=== PATIENT | female | born 1965 | race Caucasian/White ===

== ENCOUNTER 2016-08-26 10:42 | Outpatient (CLI) ==
--- NOTE | 2016-08-26 11:18 | DI ---
EXAM: Radiographs, thoracic spine HISTORY: Back pain. COMPARISON: None available. TECHNIQUE: Three views. FINDINGS: Moderate right convex curvature centered near T9 noted. Alignment is normal. Paraverteb ral body heights are maintained. Mild loss of disc height with endplate osteophyte formation seen, greater, about the area of convex curvature. No fracture identified. Soft tissues are unremarkable . IMPRESSION: 1. Moderate right convex lower thoracic curvature. 2. Mild degenerative disc disease.
--- NOTE | 2016-08-26 11:23 | DI ---
EXAM: Three views of the cervical spine HISTORY: Neck pain. COMPARISON: None FINDINGS: There is no compression fracture or subluxation of the cervical spine. The cervical spine demonstrate significant straightening. There is disc space narrowing at C4-C5, C5-C6 and C6-C7. T he facets are normal. Posterior processes are unremarkable. The odontoid process is unremarkable. IMPRESSION: Degenerative disease of the cervical spine with no compression fracture or subluxation.
--- NOTE | 2016-08-26 11:28 | DI ---
EXAM: Radiographs, lumbar spine HISTORY: Low back pain. COMPARISON: 03/11/2011. TECHNIQUE: Five views. FINDINGS: Right convex lower thoracic and left convex upper lumbar curvature noted. Alignment is n ormal. Vertebral body heights are maintained. There is mild loss of disc height at L1-2, L3-4 and L4-5. Mild endplate osteophyte formation noted. Facet arthropathy present throughout the lumbar sp ine, moderate in the lower lumbar spine. No fracture or subluxation identified. Sacral arcuate alla es are intact. Atherosclerotic calcifications are present. IMPRESSION: 1. S-shaped thoracolumbar scoliosis. 2. Multilevel degenerative disc disease and facet arthropathy.
[2016-08-26 15:33] LABS: BASOPHILS % (AUTO) 0.3 % (0.0-3.0); EOSINOPHILS # (AUTO) 0.1 K/ul (0.0-0.7); HEMATOCRIT 43.6 % (37.0-47.0); HEMOGLOBIN 14.2 g/dl (12.0-16.0); IMMATURE GRANULOCYTE % (AUTO) 0.3 % (0.0-5.0); LYMPHOCYTES # (AUTO) 2.1 K/uL (0.60-3.4); LYMPHOCYTES % (AUTO) 33.9 (10.0-50.0); MEAN CORPUSCULAR HEMOGLOBIN 33.3 pg (27.0-31.0); MEAN CORPUSCULAR HGB CONC 32.6 (31.8-35.4); MEAN CORPUSCULAR VOLUME 102.1 fl (81.0-99.0); MONOCYTES # (AUTO) 0.6 K/uL (0.4-2.0); NEUTROPHILS # (AUTO) 3.4 K/ul (2.0-6.9); NEUTROPHILS % (AUTO) 55.5; PLATELET COUNT 267 10^3/uL (140-440); RED BLOOD COUNT 4.27 10^6/ul (4.20-5.40); WHITE BLOOD COUNT 6.11 K/ul (4.6-10.2)
[2016-08-26 16:18] LABS: ALBUMIN 4.2 g/dL (3.4-5.0); ALBUMIN/GLOBULIN RATIO 1.2; ANION GAP 11.7; BILIRUBIN,TOTAL 0.58 mg/dL (0.00-1.20); BUN/CREATININE RATIO 22.05; CALCIUM 9.4 mg/dL (8.2-10.2); CREATININE 0.68 mg/dL (0.60-1.30); POTASSIUM 4.7 mmol/L (3.5-5.10); TOTAL PROTEIN 7.7 g/dL (6.4-8.2)
[2016-08-26 16:21] LABS: ERYTHROCYTE SEDIMENTATION RATE 20 mm/hr (0-20); ESR INTERNAL QC INTERNAL QC VALID
[2016-08-27 06:10] LABS: RHEUMATOID ARTHRITIS FACTOR < 10.0 IU/mL (0.0-13.9)
[2016-08-29 08:57] LABS: VITAMIN D25 32.1 ng/mL (30.0-100.0)
[2016-08-30 07:22] LABS: ANTI-NUCLEAR ANTIBODY SCREEN Positive (Negative)
== END 2016-08-26 10:43 | disposition home or self-care (01) ==
LOC: LAB 10:42
PROVIDERS: ATTEND Nurse Practitioner Family
DX: M54.5 Low back pain (principal); M54.2 Cervicalgia; M54.6 Pain in thoracic spine; M79.641 Pain in right hand; M79.642 Pain in left hand
CPT/HCPCS: 36415; 80053; 80061; 82306; 84439; 84443; 85025; 85651; 86038; 86430

== ENCOUNTER 2016-10-31 12:04 | Outpatient (CLI) ==
--- NOTE | 2016-10-31 13:11 | DI ---
EXAM: Three views of the left wrist. History: Left wrist pain. Findings: No acute fracture or dislocation. Well corticated ossific density adjacent to the ulnar styloid is either accessory ossicle or related to old trauma. Mild polyarticular joint space narrow ing. Impression: No acute osseous abnormality. Mild arthritis.
--- NOTE | 2016-10-31 13:14 | DI ---
EXAM: LEFT HAND THREE VIEWS HISTORY: Wrist pain FINDINGS / IMPRESSION: Bone density appears decreased. 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 Two smal l well-circumscribed bony densities are seen near the ulnar styloid base suggesting accessory ossicl es. No acute or chronic fracture is identified.
== END 2016-10-31 12:05 | disposition home or self-care (01) ==
LOC: RAD 12:04
PROVIDERS: ATTEND Nurse Practitioner Family
DX: M25.532 Pain in left wrist (principal); M79.642 Pain in left hand; M79.89 Other specified soft tissue disorders

== ENCOUNTER 2016-11-16 14:00 | Outpatient (CLI) ==
--- NOTE | 2016-11-18 07:23 | MAMMO ---
EXAM: Digital screening mammogram HISTORY: Screening mammogram COMPARISON: None FINDINGS: Bilateral CC and MLO views of the breasts were performed digitally and demonstrate scatte red fibroglandular breast density (25 - 50%). Benign bilateral calcifications are present. There is a 0.4 cm in diameter nodule in the central upper left breast approximately 4.0 cm from the nipple. There is no suspicious nodule of the right breast. IMPRESSION: Left breast nodule RECOMMENDATION: Left breast diagnostic mammogram and potential ultrasound BIRADS category 0: Needs further evaluation
== END 2016-11-16 14:01 | disposition home or self-care (01) ==
LOC: RAD 14:00
PROVIDERS: ATTEND Nurse Practitioner Family
DX: Z12.31 Encounter for screening mammogram for malignant neoplasm of breast (principal)

== ENCOUNTER 2016-11-23 10:04 | Outpatient (CLI) ==
--- NOTE | 2016-11-23 10:38 | MAMMO ---
EXAM: Left digital diagnostic mammogram History: Left breast nodule. Comparison: Bilateral mammogram 11/16/2016 Findings: Left breast density is scattered. Additional spot compression views of the left breast r eveal normal superimposed breast parenchyma. There are no suspicious masses and no suspicious micro calcifications. Impression: No mammographic evidence of malignancy. Return to routine screening mammography annette prado. BIRADS 2
== END 2016-11-23 10:05 | disposition home or self-care (01) ==
LOC: RAD 10:04
PROVIDERS: ATTEND Nurse Practitioner Family
DX: N63 Unspecified lump in breast (principal)

== ENCOUNTER 2017-02-10 09:20 | Outpatient (CLI) ==
[2017-02-10 09:43] LABS: BASOPHILS % (AUTO) 0.6 % (0.0-3.0); EOSINOPHILS # (AUTO) 0.1 K/ul (0.0-0.7); EOSINOPHILS % (AUTO) 1.6 % (0.0-7.0); HEMATOCRIT 40.6 % (37.0-47.0); HEMOGLOBIN 13.6 g/dl (12.0-16.0); IMMATURE GRANULOCYTE % (AUTO) 0.2 % (0.0-5.0); LYMPHOCYTES # (AUTO) 2.4 K/uL (0.60-3.4); LYMPHOCYTES % (AUTO) 38.1 (10.0-50.0); MEAN CORPUSCULAR HEMOGLOBIN 32.9 pg (27.0-31.0); MEAN CORPUSCULAR HGB CONC 33.5 (31.8-35.4); MEAN CORPUSCULAR VOLUME 98.1 fl (81.0-99.0); MONOCYTES # (AUTO) 0.7 K/uL (0.4-2.0); MONOCYTES % (AUTO) 10.9 (0-10); NEUTROPHILS % (AUTO) 48.6; PLATELET COUNT 239 10^3/uL (140-440); RED BLOOD COUNT 4.14 10^6/ul (4.20-5.40); WHITE BLOOD COUNT 6.24 K/ul (4.6-10.2)
[2017-02-10 10:27] LABS: ALBUMIN/GLOBULIN RATIO 1.21; ANION GAP 13.3; BILIRUBIN,TOTAL 0.52 mg/dL (0.00-1.20); BUN/CREATININE RATIO 36.61; CALCIUM 9.2 mg/dL (8.2-10.2); CREATININE 0.71 mg/dL (0.60-1.30); POTASSIUM 4.3 mmol/L (3.5-5.10); TOTAL PROTEIN 7.3 g/dL (6.4-8.2)
== END 2017-02-10 09:21 | disposition home or self-care (01) ==
LOC: LAB 09:20
PROVIDERS: ATTEND Nurse Practitioner Family
DX: R76.8 Other specified abnormal immunological findings in serum (principal); E75.6 Lipid storage disorder, unspecified
CPT/HCPCS: 36415; 80053; 80061; 84443; 85025; 93005; 93010

== ENCOUNTER 2017-05-05 12:48 | Outpatient (CLI) ==
[2017-05-05 13:11] LABS: BASOPHILS % (AUTO) 0.6 % (0.0-3.0); EOSINOPHILS # (AUTO) 0.1 K/ul (0.0-0.7); EOSINOPHILS % (AUTO) 2.2 % (0.0-7.0); HEMATOCRIT 43.4 % (37.0-47.0); HEMOGLOBIN 14.6 g/dl (12.0-16.0); IMMATURE GRANULOCYTE % (AUTO) 0.3 % (0.0-5.0); LYMPHOCYTES # (AUTO) 2.2 K/uL (0.60-3.4); LYMPHOCYTES % (AUTO) 34.7 (10.0-50.0); MEAN CORPUSCULAR HGB CONC 33.6 (31.8-35.4); MEAN CORPUSCULAR VOLUME 98.2 fl (81.0-99.0); MONOCYTES # (AUTO) 0.6 K/uL (0.4-2.0); MONOCYTES % (AUTO) 9.1 (0-10); NEUTROPHILS # (AUTO) 3.4 K/ul (2.0-6.9); NEUTROPHILS % (AUTO) 53.1; PLATELET COUNT 269 10^3/uL (140-440); RED BLOOD COUNT 4.42 10^6/ul (4.20-5.40); WHITE BLOOD COUNT 6.45 K/ul (4.6-10.2)
[2017-05-05 13:25] LABS: BILIRUBIN,URINE Negative (NEGATIVE); KETONES,URINE Negative (NEGATIVE); LEUKOCYTE ESTERASE ,URINE Negative (NEGATIVE); NITRITE,URINE Negative (NEGATIVE); PROTEIN,URINE Trace (NEGATIVE); URINE, BLOOD Trace-intact (NEGATIVE)
[2017-05-05 13:30] LABS: ADD URINE MICROSCOPIC YES
[2017-05-05 13:51] LABS: BACTERIA,URINE TRACE (NOT PRESENT)
[2017-05-05 13:55] LABS: ALBUMIN 3.9 g/dL (3.4-5.0); ALBUMIN/GLOBULIN RATIO 1.05; CALCIUM 9.6 mg/dL (8.2-10.2); POTASSIUM 4.3 mmol/L (3.5-5.10); TOTAL PROTEIN 7.6 g/dL (6.4-8.2)
[2017-05-05 13:56] LABS: ANION GAP 14.3; BILIRUBIN,TOTAL 0.76 mg/dL (0.00-1.20); BUN/CREATININE RATIO 32.83; CHOL/HDL RATIO 3.8 (4.5-5.5); CREATININE 0.67 mg/dL (0.60-1.30)
== END 2017-05-05 12:49 | disposition home or self-care (01) ==
LOC: LAB 12:48
PROVIDERS: ATTEND Nurse Practitioner Family
DX: R30.0 Dysuria (principal); E66.9 Obesity, unspecified; R53.83 Other fatigue; M54.2 Cervicalgia
CPT/HCPCS: 36415; 80053; 80061; 81001; 82306; 84439; 84443; 85025

== ENCOUNTER 2017-05-08 12:12 | Outpatient (CLI) | END 2017-05-08 12:13 | disposition home or self-care (01) | LOC: CAR 12:12 | PROVIDERS: ATTEND Nurse Practitioner Family | DX: R53.83 Other fatigue (principal) | CPT/HCPCS: 95810 ==

== ENCOUNTER 2017-09-25 13:21 | Outpatient (CLI) | END 2017-09-25 13:22 | disposition home or self-care (01) | LOC: LAB 13:21 | PROVIDERS: ATTEND Nurse Practitioner Family | DX: I83.029 Varicose veins of left lower extremity with ulcer of unspecified site (principal); E66.9 Obesity, unspecified; E78.5 Hyperlipidemia, unspecified | CPT/HCPCS: 36415; 80053; 80061; 85025; 87070 ==

== ENCOUNTER 2017-09-27 09:33 | Outpatient (CLI) | END 2017-09-27 09:34 | disposition home or self-care (01) | LOC: WOUND 09:33 | PROVIDERS: ATTEND Psychiatry & Neurology Psychiatry | DX: I87.313 Chronic venous hypertension (idiopathic) with ulcer of bilateral lower extremity (principal); L95.8 Other vasculitis limited to the skin; F17.210 Nicotine dependence, cigarettes, uncomplicated | CPT/HCPCS: 99201; 99202 ==

== ENCOUNTER 2017-09-28 12:25 | Outpatient (CLI) | END 2017-09-28 12:26 | disposition home or self-care (01) | LOC: RAD 12:25 | PROVIDERS: ATTEND Nurse Practitioner Family | DX: I83.029 Varicose veins of left lower extremity with ulcer of unspecified site (principal); L97.929 Non-pressure chronic ulcer of unspecified part of left lower leg with unspecified severity; I83.019 Varicose veins of right lower extremity with ulcer of unspecified site; L97.919 Non-pressure chronic ulcer of unspecified part of right lower leg with unspecified severity; M79.605 Pain in left leg; M79.604 Pain in right leg ==

== ENCOUNTER 2017-10-04 09:32 | Outpatient (CLI) | END 2017-10-04 09:33 | disposition home or self-care (01) | LOC: WOUND 09:32 | PROVIDERS: ATTEND Nurse Practitioner Family | DX: I87.313 Chronic venous hypertension (idiopathic) with ulcer of bilateral lower extremity (principal); L95.8 Other vasculitis limited to the skin; F17.210 Nicotine dependence, cigarettes, uncomplicated | CPT/HCPCS: 99211; 99212 ==

== ENCOUNTER 2017-11-30 10:24 | Outpatient (CLI) | END 2017-11-30 10:25 | disposition home or self-care (01) | LOC: FCC-LAB 10:24 | PROVIDERS: ATTEND Nurse Practitioner Family | DX: I83.029 Varicose veins of left lower extremity with ulcer of unspecified site (principal); Z72.0 Tobacco use | CPT/HCPCS: 36415; 80053; 83037; 85025 ==